=== PATIENT | male | born 1975 | race Caucasian/White ===

== ENCOUNTER 2020-03-26 17:19 | Outpatient (REF) | payer MEDICAID, SELFPAY | END 2020-03-26 17:20 | disposition home or self-care (01) | LOC: HO.LAB 17:19 | PROVIDERS: Visit Provider Internal Medicine | DX: Z20.828 Contact with and (suspected) exposure to other viral communicable diseases (principal) | CPT/HCPCS: C9803; U0003 ==

== ENCOUNTER 2022-10-06 12:11 | Outpatient (REF) | payer MEDICAID, SELFPAY ==
[2022-10-06 13:21] LABS: MANUAL DIFF FLAG NO
[2022-10-06 13:29] LABS: Basophils Absolute Auto 0.1 X10*3/uL (0.0-0.2); Basophils Percent Auto 1.3 % (0-2); Eosinophils Absolute Auto 0.5 X10*3/uL (0.0-0.4); Eosinophils Percent Auto 5.1 % (0-4); Hematocrit 41.5 % (42.0-52.0); Hemoglobin 13.7 g/dl (14.0-18.0); Imm Gran Abs Auto 0.05 X10*3/uL (0.00-0.03); Imm Gran Pct Auto 0.5 % (0.0-0.4); Lymphocytes Absolute Auto 3.4 X10*3/uL (1.2-4.9); Lymphocytes Percent Auto 32.8 % (20-40); Mean Corpuscular Hemoglobin 29.2 pg (27.0-33.0); Mean Corpuscular Volume 88.5 fL (80.0-98.0); Mean Platelet Volume 11.3 fL (9.4-12.4); Monocytes Absolute Auto 1.3 X10*3/uL (0.1-1.2); Monocytes Percent Auto 12.1 % (2-11); Neutrophils Absolute Auto 5.1 x10*3/uL (2.0-8.3); Neutrophils Percent Auto 48.2 % (45-73); Platelet Count 227 X10*3/uL (160-400); Red Blood Count 4.69 X10*6/uL (4.60-5.80); Red Cell Distribution Width 13.7 % (11.0-16.0); White Blood Count 10.5 X10*3/uL (4.8-10.8)
[2022-10-06 13:49] LABS: Alanine Aminotransferase 10 U/L (0-40); Albumin Level 3.9 g/dL (3.5-5.0); Alkaline Phosphatase 50 U/L (39-117); Anion Gap 11 (12-20); Aspartate Amino Transferase 17 U/L (5-37); Bilirubin Total 0.4 mg/dL (0.0-1.0); Blood Urea Nitrogen 15 mg/dL (9-16); C Reactive Protein < 0.10 mg/dL (< or = 0.50); Calcium 9.3 mg/dL (8.4-10.2); Carbon Dioxide 31 mmol/L (22-29); Chloride 105 mmol/L (96-108); Estimated Glomerular Filt Rate > 60; Glucose Random 68 mg/dL (60-115); Potassium 4.1 mmol/L (3.3-5.1); Sodium 143 mmol/L (135-145); Total Protein 6.3 g/dL (6.5-8.0)
[2022-10-06 14:08] LABS: Free T4 (Free Thyroxine) 0.87 ng/dL (0.71-1.85); Thyroid Stimulating Hormone 1.39 uIU/mL (0.32-4.0)
[2022-10-06 14:13] LABS: Erythrocyte Sedimentation Rate 2 MM/HR (0-15)
[2022-10-06 14:18] LABS: Vitamin B12 1051 pg/mL (200-900)
[2022-10-06 14:51] LABS: Valproate 104.8 mcg/mL (50.0-100.0)
== END 2022-10-06 12:12 | disposition home or self-care (01) ==
LOC: HO.10HDL 12:11
PROVIDERS: Visit Provider Internal Medicine
DX: R25.1 Tremor, unspecified (principal); R51.9 Headache, unspecified; R56.9 Unspecified convulsions; Z79.899 Other long term (current) drug therapy
CPT/HCPCS: 36415; 80053; 80164; 82607; 84439; 84443; 85025; 85652; 86140

== ENCOUNTER 2024-07-16 11:08 | Outpatient (AMB) | payer MEDICAID, SELFPAY ==
--- NOTE | 2024-07-16 11:20 | MHC.PC.OV ---
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 Accompanied by: Self / Same As Patient Allergies No Known Allergies Allergy (Unverified 07/16/24 11:26) Tobacco use date assessed: 07/16/24 Dental Screening Dental Screen Date: 07/16/24 Did you have a dental visit in the last 12 months?: Yes Did you have a dental problem in the last 6 months where you did not have access to dental care?: No PFSH Medical History (Updated 07/16/24 @ 12:07 by Lawson Colmenares MD) Seizure disorder Family History (Updated 07/16/24 @ 11:46 by Mi Scherer CMA) Mother Lung cancer Brain tumor Father Parkinson disease COVID-19 Social History Housing: House Patient Tobacco Use Status: Current everyday Tobacco user Tobacco use type: Cigarette and Cigar e-Cigarette/Vaping Use: Currently Using service: No Current occupational status: employed Cognitive needs: No Hearing needs: No Vision needs: No Questionnaire PHQ-9 Over the last 2 weeks, how often have you been bothered by any of the following problems? 1. Little interest or pleasure in doing things: nearly every day 2. Feeling down, depressed, or hopeless: several days 3. Trouble falling or staying asleep, or sleeping too much: several days 4. Feeling tired or having little energy: several days 5. Poor appetite or overeating: nearly every day 6. Feeling bad about yourself - or that you are a failure or have let yourself or your family down: not at all 7. Trouble concentrating on things, such as reading the newspaper or watching television: not at all 8. Moving or speaking so slowly that other people could have noticed. Or the opposite - being so fidgety or restless that you have been moving around a lot more than usual: not at all 9. Thoughts that you would be better off or of hurting yourself in some way: not at all Total score: 9 Source: Developed by Drs. Ronald Finley, Radha Bonilla, Fritz Zhu and colleagues, with an educational meghann from [employer]. Thrive Questionnaire Date Thrive assessed: 07/16/24 I am a: Patient Within the past 12 months, did the food you bought not last and you didn't have the money to get more?: Never true Within the past 12 months, did you worry whether your food would run out before you got money to buy more?: Never true Do you have trouble paying for medicines?: No Do you have trouble getting transportation to medical appointments?: No Do you have trouble paying your heating and electricity bill?: No Do you have trouble taking care of your child, family member or friend?: No Do you have trouble with day-to-day activities such as bathing, preparing meals, shopping, managing finances, etc.?: No Are you currently unemployed and looking for a job?: No THRIVE Score: 0 AUDIT C Alcohol Use Questionnaire (AUDIT-C) 1. How often do you have a drink containing alcohol?: Monthly or less 3. How often do you have six or more drinks on one occasion?: Less than monthly Total Score: 2 ANI-7 AMB Questionnaire ANI-7 Date ANI - 7 assessed: 07/16/24 Feeling nervous, anxious, or on edge: 3 = Nearly every day Not being able to stop or control worryin = Not at all Worrying too much about different things: 0 = Not at all Trouble relaxin = Not at all Being so restless that it is hard to sit still: 0 = Not at all Becoming easily annoyed or irritable: 0 = Not at all Feeling afraid as if something awful might happen: 0 = Not at all Total ANI-7 score (0-4 normal; 5-9 mild; 10-14 moderate; 15-21 severe): 3 Source: Developed by Drs. Ronald Finley, Radha Bonilla, Fritz Zhu and colleagues, with an educational meghann from [employer]. Physical exam (Primary Care) Vital Signs: Last Vital Signs Temp 97.8 F 07/16/24 11:37 Pulse 85 07/16/24 11:37 BP 112/70 07/16/24 11:37 Pulse Ox 97 07/16/24 11:37 Oxygen Delivery Method Room Air 07/16/24 11:37 BMI result Body Mass Index 21.6 Tobacco/Smoking Status: Tobacco use Status Tobacco use date assessed 07/16/24 07/16/24 11:28 Patient Tobacco Use Status Current everyday Tobacco 07/16/24 11:52 Tobacco use type Cigarette,Cigar 07/16/24 11:52 e-Cigarette/Vaping Use Currently Using 07/16/24 11:52 PHQ-9: PHQ-9 Score PHQ-9: Total score 9 07/16/24 11:52 Thrive Assessment: Date of Thrive Assessment Date Thrive assessed 07/16/24 07/16/24 11:28 Coding Level of Care Code New Pt Level 4 (70371) Complex EM visit Add On G2211 Diagnoses Seizure disorder G40.909 Assessment & Plan Assessment & Plan (1) Seizure disorder: Code(s): G40.909 - Epilepsy, unspecified, not intractable, without status epilepticus Category: Medical Plan: Continue Depakote at current dosage. Keep regular follow up with Neurology Plan History of Present Illness The patient is a 49-year-old male presenting with a seizure disorder and musculoskeletal complaints. He has been receiving Depakote at a dosage of 1250 mg twice daily but reports continued seizure activity, the most recent occurring two weeks ago. Historical management of his disorder was initially overseen by Dr. Erasmo Liu, and he is currently under the care of Dr. Macias at [facility]. The patient?s driving privileges have been suspended due to his condition. Additionally, he presents with a recent history of arm pain and numbness, attributed to muscle tension secondary to seizure activity. He visited urgent care for these complaints, receiving a muscle relaxant which provided temporary relief. Past physical therapy was undertaken three years ago. The patient expresses concern over the ongoing presence of these symptoms and expresses willingness for further evaluation and management. 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 Reports difficulty finding new employment due to his medical condition. - Substance use: Reports daily use of marijuana and tobacco smoking. 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 - Insurance and Support: Has not engaged with social human services assistants support for transportation but has contacted his insurance. Review of Systems - Neurological: Reports ongoing seizures despite medication. - Musculoskeletal: Reports arm pain and numbness, possibly related to muscle tension from seizures. - Substance Use: Denies alcohol use; reports daily use of cigarettes and marijuana. Physical Exam General: Cooperative and healthy appearing Nutritional Appearance: Well nourished Orientation/consciousness: Patient oriented x3 Limitations: No limitations Head: Normal to inspection General: Appearance normal, both eyes and all related structures Neck: Normal visual inspection Chest: Normal palpation of entire chest wall Respiratory: N ormal respiratory effort Neurology: Patient oriented x3, reports seizures, last seizure approximately two weeks ago. Results Plan We will maintain the current Depakote regimen for seizure control and ensure the patient stays connected with Dr. Macias for specialist oversight. A referral to physical therapy will be made to manage his musculoskeletal complaints. We will explore transportation options to facilitate access to healthcare appointments. The patient will be advised to follow up for assistance through the immunity navigator. Patient was informed and verbally consented to the use of an ambient scribe for clinic note documentation during this visit. Discussion Notes I have explained the necessity of continuing Depakote and the expected role of regular neurology consultations in maintaining seizure control. We discussed that continued seizures suggest the possibility of adjusting treatment regimens and that Dr. Macias could make informed decisions during their follow-up. I offered a referral for physical therapy to manage musculoskeletal symptoms, explaining its potential benefits. I also advised the patient to contact his insurance for transportation services and emphasized access to the [employer] navigator for further support concerning logistical challenges in attending medical appointments. Patient Instructions - Continue current Depakote dosage as previously prescribed. - Follow up with Dr. Macias for ongoing seizure management. - Begin physical therapy as referred for arm pain and numbness. - Contact insurance to explore transportation options for medical appointments. - Engage with the immunity navigator for additional support as needed. - Return for follow-up as scheduled or if symptoms worsen. Orders: Orders Basic Metabolic Panel Today G40.909 - Epilepsy, unspecified, not intractable, without status epilepticus Lipid Panel Today G40.909 - Epilepsy, unspecified, not intractable, without status epilepticus Liver Panel Today G40.909 - Epilepsy, unspecified, not intractable, without status epilepticus Thyroid Stimulating Hormone Today G40.909 - Epilepsy, unspecified, not intractable, without status epilepticus PT Evaluation and Treatment Today S46.912A - Strain of unspecified muscle, fascia and tendon at shoulder and upper arm level, left arm, initial encounter Complete Blood Count no Diff Today G40.909 - Epilepsy, unspecified, not intractable, without status epilepticus UA and rflx microscopic Today G40.909 - Epilepsy, unspecified, not intractable, without status epilepticus
[2024-07-16 11:37] VITALS: BP 112/70; PULSE 85; TEMP 36.6; O2SAT 97; BMI 21.6
== END 2024-07-16 12:35 | disposition home or self-care (01) ==
LOC: HO.HMCHD 11:09
PROVIDERS: PCP Internal Medicine; Visit Provider Internal Medicine
DX: G40.909 Epilepsy, unspecified, not intractable, without status epilepticus (principal)

== ENCOUNTER → 2024-07-16 11:08 | Outpatient (BNVA) | payer MEDICAID, SELFPAY | PROVIDERS: PCP Internal Medicine; Visit Provider Internal Medicine | DX: G40.909 Epilepsy, unspecified, not intractable, without status epilepticus (principal) | CPT/HCPCS: 99202 ==